=== PATIENT | female | born 1995 | race Hispanic/Latino ===

== ENCOUNTER 2016-10-26 21:56 | Emergency (ER) | payer OTHER ==
[2016-10-26 22:00] VITALS: BP 102/62; PULSE 69; RESP 18; TEMP 98; O2SAT 100
--- NOTE | 2016-10-26 22:57 | ED PDOC ---
HPI: Nose Bleed Time Seen by Provider: 10/26/16 22:00 Chief Complaint (Nursing): ENT Problem Chief Complaint (Provider): Nose bleed History Per: Patient History/Exam Limitations: no limitations Current Symptoms Are (Timing): Gone Now Location Of Bleeding: Left Nare Additional Complaint(s): Pt states she has been having panic attacks for 2 weeks and was seen in an ER when she had her first one. PT states she has been taking ativan as needed. Pt states she was seen by PMD today and given a new Rx for a daily medication. Pt states she has also been taking OTC medication for sleep that is not melatonin. Pt state she has taken it a few times the last week (? diphenhydramine). PT states today she began having a nose bleed which stopped in 5 minutes of applying pressure. Pt states she swallowed some blood which made her vomit. Pt states she has no abdominal pain or nausea now. PT reports anxiety starting after her friends mother from an aneurysm. Past Medical History Reviewed: Historical Data, Nursing Documentation, Vital Signs Vital Signs: Last Vital Signs Temp 98 F 10/26/16 21:58 Pulse 69 10/26/16 21:58 Resp 18 10/26/16 21:58 BP 102/62 10/26/16 21:58 Pulse Ox 100 10/26/16 21:58 - Medical History PMH: Anxiety - Surgical History Surgical History: No Surg Hx - Family History Family History: States: Unknown Family Hx - Living Arrangements Living Arrangements: With Family - Social History Current smoker - smoking cessation education provided: No Alcohol: Occasional Drugs: Denies - Allergies Allergies/Adverse Reactions: Allergies Allergy/AdvReac Type Severity Reaction Status Date / Time No Known Allergies Allergy Verified 10/26/16 22:00 Review of Systems ROS Statement: Except As Marked, All Systems Reviewed And Found Negative ENT: Positive for: Other (Nose bleed) Physical Exam - Reviewed Nursing Documentation Reviewed: Yes Vital Signs Reviewed: Yes - Physical Exam Appears: Positive for: Well, Non-toxic, No Acute Distress Head Exam: Positive for: ATRAUMATIC, NORMAL INSPECTION, NORMOCEPHALIC Skin: Positive for: Normal Color, Warm, DRY Eye Exam: Positive for: Normal appearance ENT: Positive for: Normal ENT Inspection, Other ((-) septal hematoma ) Neck: Positive for: Normal, Painless ROM Cardiovascular/Chest: Positive for: Regular Rate, Rhythm Respiratory: Positive for: Normal Breath Sounds. Negative for: Accessory Muscle Use, Respiratory Distress Back: Positive for: Normal Inspection Extremity: Positive for: Normal ROM Neurologic/Psych: Positive for: Alert, customer relations coordinator II-XII, Oriented, Mood/Affect, Cerebellar Tests, Gait. Negative for: Motor/Sensory Deficits, Aphasia, Facial Droop - ECG O2 Sat by Pulse Oximetry: 100 Pulse Ox Interpretation: Normal Medical Decision Making Medical Decision Making: Pt states she is going for labs next week which was ordered by her PMD. Disposition - Clinical Impression Clinical Impression: Epistaxis - Patient ED Disposition Is Patient to be Admitted: No Counseled Patient/Family Regarding: Diagnosis, Need For Followup - Disposition Referrals: Rebecca Shultz MD [Family Provider] - Disposition: Routine/Home Disposition Time: 22:55 Condition: GOOD Instructions: Nosebleed (ED)
== END 2016-10-26 23:01 | disposition home or self-care (01) ==
LOC: H.ER 21:56
DX: R04.0 Epistaxis (principal)

== ENCOUNTER 2016-11-19 18:29 | Emergency (ER) | payer OTHER ==
[2016-11-19 18:39] VITALS: BP 118/69; PULSE 85; RESP 16; TEMP 98.4; O2SAT 100
--- NOTE | 2016-11-19 20:21 | ED PDOC ---
HPI: Chest Pain Time Seen by Provider: 11/19/16 20:06 Chief Complaint (Nursing): Chest Pain Chief Complaint (Provider): chest pain History/Exam Limitations: no limitations Onset/Duration Of Symptoms: Days (5), Waxing/Waning Quality: Dull Additional History Per: Patient Additional Complaint(s): 21 y/o female presents with intermittent chest pain x 5 days. Patient describes a "dull" pain, in the midsternal to left side of chest. She also notes intermittent tingling to hands and feet, last episode earlier today with feelings of "light headed". Patient currently on Amoxicillin for sinus infection, and protonix and pepcid for gastritis. Denies headache, fever, nausea/vomiting, shortness of breath, palpitations, abdominal pain, leg pain/ swelling, recent travel, OCP use. Past Medical History Reviewed: Historical Data, Nursing Documentation, Vital Signs Vital Signs: Last Vital Signs Temp 98.4 F 11/19/16 18:36 Pulse 85 11/19/16 18:36 Resp 16 11/19/16 18:36 BP 118/69 11/19/16 18:36 Pulse Ox 100 11/19/16 22:13 - Medical History PMH: Anxiety - Surgical History Surgical History: No Surg Hx - Family History Family History: States: Unknown Family Hx - Living Arrangements Living Arrangements: Alone - Social History Current smoker - smoking cessation education provided: No Alcohol: Social Drugs: Denies - Home Medications Home Medications: Ambulatory Orders Medication Instructions Recorded Escitalopram [Lexapro] 10 mg PO DAILY 11/06/16 Famotidine [Pepcid] 20 mg PO PRN PRN #30 tab 11/06/16 Pantoprazole [Protonix EC Tab] 20 mg PO DAILY #30 ect 11/06/16 - Allergies Allergies/Adverse Reactions: Allergies Allergy/AdvReac Type Severity Reaction Status Date / Time No Known Allergies Allergy Verified 11/19/16 18:35 TAMIA Risk Score for UA/NSTEMI - TAMIA Risk Score Age > 64: NO 3 or more CAD Risk Factors: NO Known CAD (Stenosis greater than 50%): NO Aspirin use in past 7 days: NO Severe Angina: NO EKG ST changes greater than 0.5mm: NO Positive Cardiac Marker: NO TAMIA Score: 0 Risk %: 5% Wells Criteria for PE - Wells Criteria for Pulmonary Embolism Clinical Signs and Symptoms of DVT: No P.E is #1 Diagnosis, or Equally Likely: No Heart Rate >100: No Immobilization at least 3 days;Surgery previous 4 weeks: No Previous, objectively diagnosed PE or DVT: No Hemoptysis: No Malignancy w/treatment within 6 months, or palliative: No Total Score: 0 Review of Systems ROS Statement: Except As Marked, All Systems Reviewed And Found Negative Cardiovascular: Positive for: Chest Pain Physical Exam - Reviewed Nursing Documentation Reviewed: Yes Vital Signs Reviewed: Yes - Physical Exam Appears: Positive for: Well, Non-toxic, No Acute Distress Head Exam: Positive for: ATRAUMATIC, NORMAL INSPECTION, NORMOCEPHALIC Skin: Positive for: Normal Color Eye Exam: Positive for: Normal appearance ENT: Positive for: Normal ENT Inspection Cardiovascular/Chest: Positive for: Regular Rate, Rhythm. Negative for: Chest Non Tender (tender to palpate mid-sternum, left chest wall; no crepitus, ecchymosis noted) Respiratory: Positive for: Normal Breath Sounds Gastrointestinal/Abdominal: Positive for: Normal Exam Back: Positive for: Normal Inspection Extremity: Positive for: Normal ROM Neurologic/Psych: Positive for: Alert, Oriented. Negative for: Motor/Sensory Deficits - Laboratory Results Result Diagrams: 11/19/16 20:37 11/19/16 20:37 - ECG ECG: Positive for: Viewed By Me (reviewed by ED attending) ECG Rhythm: Positive for: Sinus Rhythm O2 Sat by Pulse Oximetry: 100 Pulse Ox Interpretation: Normal - Radiology X-Ray: Viewed By Me X-Ray Interpretation: No Acute Disease - Progress ED Course And Treament: labs, ekg, chest xray Patient given potassium PO for slightly low level. Patient educated on findings, discharged with instructions to follow up PMD 2-3 days. Return to ED for worsening/concerning symptoms. Disposition - Clinical Impression Clinical Impression: Atypical chest pain - Patient ED Disposition Is Patient to be Admitted: No Counseled Patient/Family Regarding: Studies Performed, Diagnosis, Need For Followup - Disposition Disposition: Routine/Home Disposition Time: 22:29 Condition: IMPROVED Instructions: Noncardiac Chest Pain (ED)
[2016-11-19 20:55] LABS: BASO % 0.6 % (0.0-2.0); EOS % 0.5 % (0.0-4.0); HEMATOCRIT 37.9 % (34.0-47.0); LYMPH # 2.7 K/uL (1.0-4.3); LYMPH % 33.1 % (20.0-40.0); MEAN CELL VOLUME 88.2 fl (81.0-99.0); MEAN CORPUSCULAR HEMOGLOBIN 29.7 pg (27.0-31.0); MEAN CORPUSCULAR HGB CONC 33.7 g/dL (33.0-37.0); MEAN PLATELET VOLUME 8.4 fl (7.2-11.7); MONO # 0.6 K/uL (0.0-0.8); MONO % 7.6 % (0.0-10.0); NEUT # 4.7 K/uL (1.8-7.0); NEUT % 58.2 % (50.0-75.0); NRBC % 0.1 % (0.0-0.0); RED CELL DISTRIBUTION WIDTH 12.8 % (11.5-14.5)
[2016-11-19 21:03] LABS: ALB/GLOB RATIO 1.8 (1.0-2.1); ALKALINE PHOSPHATASE 52 U/L (38-126); ALT/SGPT 30 U/L (9-52); AST/SGOT 26 U/L (14-36); BILIRUBIN,TOTAL 0.4 mg/dl (0.2-1.3); BLOOD UREA NITROGEN 14 mg/dl (7-17); CALCIUM 9.4 mg/dL (8.4-10.2); CARBON DIOXIDE 22 mmol/L (22-30); CHLORIDE 104 mmol/L (98-107); GFR AFRICAN-AMERICAN > 60; GLUCOSE,RANDOM 81 mg/dL (65-105); POTASSIUM 3.4 MMOL/L (3.6-5.0); SODIUM 137 mmol/l (132-148); TOTAL PROTEIN 6.8 G/DL (6.3-8.2)
[2016-11-19] MEDS ORDERED: Potassium Chloride 20 mEq ER Tab PO ONE ×2 (22:13→22:53)
--- NOTE | 2016-11-20 01:43 | CARD ---
APPROVED REPORT EKG Measurement Heart [id number] <Conclusion> Normal sinus rhythm Low voltage QRS Borderline ECG
--- NOTE | 2016-11-20 11:22 | RAD ---
HISTORY: chest pain COMPARISON: No prior. TECHNIQUE: Chest PA and lateral FINDINGS: LUNGS: No active pulmonary disease. PLEURA: No significant pleural effusion identified. No pneumothorax apparent. CARDIOVASCULAR: Normal. OSSEOUS STRUCTURES: No significant abnormalities. VISUALIZED UPPER ABDOMEN: Normal. OTHER FINDINGS: None. IMPRESSION: No active disease.
== END 2016-11-19 23:12 | disposition home or self-care (01) ==
LOC: H.ER 18:29
DX: R07.9 Chest pain, unspecified (principal); F41.9 Anxiety disorder, unspecified

== ENCOUNTER 2017-04-28 21:00 | Emergency (ER) | payer OTHER ==
[2017-04-28 21:15] VITALS: BP 122/84; PULSE 69; RESP 16; TEMP 98.6; O2SAT 99
--- NOTE | 2017-04-28 21:20 | ED PDOC ---
HPI: Headache Time Seen by Provider: 04/28/17 21:19 Chief Complaint (Nursing): Headache Chief Complaint (Provider): Headache History Per: Patient Additional Complaint(s): Pt is a 22 yo female, PMH of anxiety, presents to ED for evaluation of constant headache x 3 months now. Pt reports she has seen an ENT and has been treated for recurrent sinus infections. Pt currently on Augmentin and Prednisone. Past Medical History Reviewed: Nursing Documentation, Vital Signs Vital Signs: Last Vital Signs Temp 98.6 F 04/28/17 21:12 Pulse 69 04/28/17 21:12 Resp 16 04/28/17 21:12 BP 122/84 04/28/17 21:12 Pulse Ox 99 04/28/17 21:12 - Medical History PMH: Anxiety - Surgical History Surgical History: No Surg Hx - Family History Family History: States: Unknown Family Hx - Living Arrangements Living Arrangements: With Family - Social History Current smoker - smoking cessation education provided: No Alcohol: None Drugs: Denies - Home Medications Home Medications: Ambulatory Orders Medication Instructions Recorded Escitalopram [Lexapro] 10 mg PO DAILY 11/06/16 Famotidine [Pepcid] 20 mg PO PRN PRN #30 tab 11/06/16 Pantoprazole [Protonix EC Tab] 20 mg PO DAILY #30 ect 11/06/16 Acetaminophen/Butalbital/Caf 1 tab PO Q4 #15 tab 04/29/17 [Fioricet] - Allergies Allergies/Adverse Reactions: Allergies Allergy/AdvReac Type Severity Reaction Status Date / Time No Known Allergies Allergy Verified 11/19/16 18:35 Review of Systems ROS Statement: Except As Marked, All Systems Reviewed And Found Negative Neurological: Positive for: Headache Physical Exam - Reviewed Nursing Documentation Reviewed: Yes Vital Signs Reviewed: Yes - Physical Exam Appears: Positive for: Well, Non-toxic, No Acute Distress Head Exam: Positive for: ATRAUMATIC, NORMAL INSPECTION, NORMOCEPHALIC Skin: Positive for: Normal Color, Warm, DRY Eye Exam: Positive for: EOMI, Normal appearance, PERRL ENT: Positive for: Normal ENT Inspection Neck: Positive for: Normal, Painless ROM Cardiovascular/Chest: Positive for: Regular Rate, Rhythm Respiratory: Positive for: CNT, Normal Breath Sounds Gastrointestinal/Abdominal: Positive for: Normal Exam, Bowel Sounds, Soft Back: Positive for: Normal Inspection Extremity: Positive for: Normal ROM Neurologic/Psych: Positive for: Alert, Oriented - Laboratory Results Result Diagrams: 04/28/17 23:19 04/28/17 23:19 - ECG O2 Sat by Pulse Oximetry: 99 Medical Decision Making Medical Decision Making: IV access established and diagnostics ordered Treatment initiated with Toradol, Reglan and IVF Labs resulted and reviewed with Pt who demonstrated fill understanding CT SINUS IMPRESSION: None 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 Pt on re-eval reports feeling improved. Neuro exam remains non focal. Stable for discharge at this time Pt reports that she is following up with her ENT tomorrow. Disposition - Clinical Impression Clinical Impression: Headache - Patient ED Disposition Is Patient to be Admitted: No - Disposition Disposition: Routine/Home Disposition Time: 00:00 Condition: STABLE Prescriptions: Acetaminophen/Butalbital/Caf [Fioricet] 1 tab PO Q4 #15 tab Instructions: Migraine Headache (ED) Forms: [employer] (Uzbek), [facility] ED School/Work Excuse
[2017-04-28] MEDS ORDERED: Sodium Chloride 0.9% 1,000 ML IV STA (21:43)
[2017-04-28 23:27] LABS: BASO % 0.2 % (0.0-2.0); HEMATOCRIT 40.3 % (34.0-47.0); LYMPH # 0.9 K/uL (1.0-4.3); LYMPH % 7.3 % (20.0-40.0); MEAN CELL VOLUME 90.4 fl (81.0-99.0); MEAN CORPUSCULAR HEMOGLOBIN 29.9 pg (27.0-31.0); MEAN CORPUSCULAR HGB CONC 33.1 g/dL (33.0-37.0); MEAN PLATELET VOLUME 8.1 fl (7.2-11.7); MONO # 0.3 K/uL (0.0-0.8); MONO % 2.3 % (0.0-10.0); NEUT # 11.1 K/uL (1.8-7.0); NEUT % 90.2 % (50.0-75.0); PLATELET COUNT 271 K/uL (130-400); RED CELL DISTRIBUTION WIDTH 12.7 % (11.5-14.5); WHITE BLOOD COUNT 12.3 K/uL (4.8-10.8)
[2017-04-28 23:41] LABS: ALB/GLOB RATIO 1.6 (1.0-2.1); ALKALINE PHOSPHATASE 51 U/L (38-126); ALT/SGPT 33 U/L (9-52); AST/SGOT 23 U/L (14-36); BILIRUBIN,TOTAL 0.5 mg/dl (0.2-1.3); BLOOD UREA NITROGEN 15 mg/dl (7-17); CALCIUM 9.8 mg/dL (8.4-10.2); CARBON DIOXIDE 24 mmol/L (22-30); CHLORIDE 106 mmol/L (98-107); GFR AFRICAN-AMERICAN > 60; GLUCOSE,RANDOM 119 mg/dL (65-105); POTASSIUM 3.9 MMOL/L (3.6-5.0); SODIUM 141 mmol/l (132-148); TOTAL PROTEIN 7.2 G/DL (6.3-8.2)
[2017-04-29 01:19] LABS: NEUTROPHIL 86 % (42-75); TOTAL CELLS COUNTED 100
[2017-04-29 01:50] LABS: ERYTHROCYTE SEDIMENTATION RATE 4 mm/hr (0-20)
--- NOTE | 2017-04-29 08:55 | CT ---
PROCEDURE: CT HEAD WITHOUT CONTRAST. HISTORY: severe headache, temporal x 4 months COMPARISON: None available. TECHNIQUE: Axial computed tomography images were obtained through the head/brain without intravenous contrast. Radiation dose: Total exam DLP = 813.01 mGy-cm. This CT exam was performed using one or more of the following dose reduction techniques: Automated exposure control, adjustment of the mA and/or kV according to patient size, and/or use of iterative reconstruction technique. FINDINGS: HEMORRHAGE: No intracranial hemorrhage. BRAIN: Normal prakash-white matter differentiation and density are appreciated throughout the cerebrum and cerebellum with the brainstem appearing unremarkable as well. There is no mass effect. There is no suspicious extra-axial fluid collection in the midline brain anatomy appears diffusely unremarkable. VENTRICLES: Unremarkable. No hydrocephalus. CALVARIUM: No significant lytic or blastic change is identified and there is no displaced fracture identified including through the skullbase. PARANASAL SINUSES: Unremarkable as visualized. No significant inflammatory changes. MASTOID AIR CELLS: Unremarkable as visualized. No inflammatory changes. OTHER FINDINGS: None. IMPRESSION: Normal CT of the Head. Concordant preliminary report from [facility], 04/28/2017.
--- NOTE | 2017-04-29 08:59 | CT ---
PROCEDURE: CT SINUSES WITHOUT CONTRAST HISTORY: headahce, sinus pain COMPARISON: None TECHNIQUE: Contiguous axial CT images of the paranasal sinuses were obtained. Coronal and sagittal reformats were generated. Radiation dose: Total exam DLP = 667.99 mGy-cm. This CT exam was performed using one or more of the following dose reduction techniques: Automated exposure control, adjustment of the mA and/or kV according to patient size, and/or use of iterative reconstruction technique. FINDINGS: Normal development and aeration of the pain is sinuses is identified throughout. FRONTAL SINUSES: Clear. ETHMOID SINUSES: Clear. SPHENOID SINUSES: Clear. MAXILLARY SINUSES: Clear. SINUS DRAINAGE: Osteomeatal complexes, frontal recesses and sphenoethmoid recesses clear. NASAL SEPTUM: Leftward nasal septal deviation is identified. MASS: None. SKULL BASE: Unremarkable. TEMPORAL BONES: Middle ears and mastoid grossly unremarkable. OTHER FINDINGS: Pneumatized bilateral superior terminates are identified. IMPRESSION: No suspicious opacification of the appearing sinuses identified which appear normal in development and aeration overall. Leftward bony nasal septal deviation is encountered. Sinus drainage appears intact grossly.
== END 2017-04-29 00:54 | disposition home or self-care (01) ==
LOC: H.ER 21:00
DX: R51 Headache (principal); J34.2 Deviated nasal septum; F41.9 Anxiety disorder, unspecified
CPT/HCPCS: 70450; 70486; 80053; 81025; 85025; 85651; 96374; 96375; 99285; J1885; J2765; J7040

== ENCOUNTER 2017-10-21 11:48 | Emergency (ER) | payer OTHER ==
[2017-10-21] MEDS ORDERED: Sodium Chloride 0.9% 1,000 ML IV STA (12:03)
--- NOTE | 2017-10-21 12:11 | ED PDOC ---
HPI: General Adult Time Seen by Provider: 10/21/17 11:57 History Per: Patient, EMS History/Exam Limitations: no limitations Current Symptoms Are (Timing): Still Present Additional Complaint(s): 22-year-old female who was brought in by EMS after experiencing syncopal episode at urgent care after blood was drawn. Feels better now. Denies chest pain, palpitations, headache, dizziness. States she felt hot when blood was being drawn. Patient was at Urgent care for LLQ pain x 2 days. Expects her period any day now. Denies dysuria, nausea, vomiting, diarrhea. PMD: Provider TBD Past Medical History Reviewed: Historical Data, Nursing Documentation, Vital Signs Vital Signs: Last Vital Signs Temp 97.6 F 10/21/17 11:52 Pulse 66 10/21/17 11:52 Resp 21 10/21/17 11:52 BP 110/69 10/21/17 11:52 Pulse Ox 100 10/21/17 12:16 - Medical History PMH: Anxiety - Surgical History Surgical History: No Surg Hx - Family History Family History: States: Unknown Family Hx - Home Medications Home Medications: Ambulatory Orders Medication Instructions Recorded Escitalopram [Lexapro] 10 mg PO DAILY 11/06/16 Famotidine [Pepcid] 20 mg PO PRN PRN #30 tab 11/06/16 Pantoprazole [Protonix EC Tab] 20 mg PO DAILY #30 ect 11/06/16 Acetaminophen/Butalbital/Caf 1 tab PO Q4 #15 tab 04/29/17 [Fioricet] Naproxen [Naprosyn] 500 mg PO Q12H #20 tab 10/21/17 - Allergies Allergies/Adverse Reactions: Allergies Allergy/AdvReac Type Severity Reaction Status Date / Time No Known Allergies Allergy Verified 11/19/16 18:35 Review of Systems ROS Statement: Except As Marked, All Systems Reviewed And Found Negative Cardiovascular: Negative for: Chest Pain, Palpitations Gastrointestinal: Positive for: Other (LLQ Pain). Negative for: Nausea, Vomiting, Diarrhea Genitourinary Female: Negative for: Dysuria Neurological: Positive for: Other (Syncopal episode). Negative for: Headache, Dizziness Physical Exam - Reviewed Nursing Documentation Reviewed: Yes Vital Signs Reviewed: Yes - Physical Exam Appears: Positive for: No Acute Distress Cardiovascular/Chest: Positive for: Regular Rate, Rhythm Respiratory: Positive for: Normal Breath Sounds. Negative for: Respiratory Distress Gastrointestinal/Abdominal: Positive for: Tenderness (Abdominal tenderness to LLQ). Negative for: Guarding, Rebound Back: Positive for: Normal Inspection. Negative for: L CVA Tenderness, R CVA Tenderness Neurologic/Psych: Positive for: Alert, Oriented (x 3). Negative for: Motor/ Sensory Deficits - Laboratory Results Result Diagrams: 10/21/17 13:26 10/21/17 13:26 - ECG O2 Sat by Pulse Oximetry: 100 (RA) Pulse Ox Interpretation: Normal Medical Decision Making Medical Decision Making: Time: 12:02 Plan: - EKG - CMP - ED Urine - CBC - Sodium Chloride 0.9% 1,000 ml IV 150 mls/hr - Transvaginal Ultrasound Scribe Attestation: Documented by Jt Conde, acting as a scribe for Elliot Oshea MD Provider Scribe Attestation: All medical record entries made by the Scribe were at my direction and personally dictated by me. I have reviewed the chart and agree that the record accurately reflects my personal performance of the history, physical exam, medical decision making, and the department course for this patient. I have also personally directed, reviewed, and agree with the discharge instructions and disposition. Disposition - Clinical Impression Clinical Impression: Vasovagal syncope, Dysmenorrhea - Patient ED Disposition Is Patient to be Admitted: No Counseled Patient/Family Regarding: Studies Performed, Diagnosis, Need For Followup, Rx Given - Disposition Referrals: [facility] [Outside] Disposition: Routine/Home Disposition Time: 15:11 Condition: FAIR Prescriptions: Naproxen [Naprosyn] 500 mg PO Q12H #20 tab Instructions: Vasovagal Response (DC)
[2017-10-21 13:30] LABS: BASO % 0.5 % (0.0-2.0); EOS % 0.3 % (0.0-4.0); HEMOGLOBIN 13.1 g/dL (12.0-16.0); LYMPH # 1.1 K/uL (1.0-4.3); LYMPH % 17.3 % (20.0-40.0); MEAN CELL VOLUME 89.3 fl (81.0-99.0); MEAN CORPUSCULAR HEMOGLOBIN 30.3 pg (27.0-31.0); MEAN CORPUSCULAR HGB CONC 33.9 g/dL (33.0-37.0); MEAN PLATELET VOLUME 8.2 fl (7.2-11.7); MONO # 0.5 K/uL (0.0-0.8); MONO % 7.6 % (0.0-10.0); NEUT # 4.9 K/uL (1.8-7.0); NEUT % 74.3 % (50.0-75.0); NRBC % 0.1 % (0.0-0.0); RBC 4.33 Mil/uL (3.80-5.20); RED CELL DISTRIBUTION WIDTH 12.3 % (11.5-14.5); WHITE BLOOD COUNT 6.6 K/uL (4.8-10.8)
[2017-10-21 13:45] LABS: ALB/GLOB RATIO 1.3 (1.0-2.1); ALBUMIN 3.8 g/dL (3.5-5.0); ALT/SGPT 33 U/L (9-52); AST/SGOT 23 U/L (14-36); BLOOD UREA NITROGEN 15 mg/dl (7-17); CALCIUM 8.9 mg/dL (8.4-10.2); GFR AFRICAN-AMERICAN > 60; GFR NON-AFRICAN AMERICAN > 60
--- NOTE | 2017-10-21 15:04 | US ---
HISTORY: LLQ pain COMPARISON: None available. TECHNIQUE: Transvaginal pelvic ultrasound was performed with longitudinal and transverse images submitted for interpretation. FINDINGS: UTERUS: Measures 7.6 x 4.3 x 3.1 cm. Normal in size and appearance. No fibroid or other mass lesion seen. ENDOMETRIUM: Measures 5.1 mm in diameter. Unremarkable. CERVIX: No cervical abnormality identified. RIGHT OVARY: Measures 3.3 x 1.7 x 2.3 cm. No solid mass. Normal flow. LEFT OVARY: Measures 2.6 x 1.4 x 1.6 cm. No solid mass. Normal flow. FREE FLUID: No significant free fluid noted. OTHER FINDINGS: None. IMPRESSION: Unremarkable pelvic ultrasound.
[2017-10-21 16:24] VITALS: BP 128/78; PULSE 78; RESP 19; TEMP 97; O2SAT 98
--- NOTE | 2017-10-22 07:35 | CARD ---
APPROVED REPORT EKG Measurement Heart [id number] <Conclusion> Normal sinus rhythm Low voltage QRS Borderline ECG
== END 2017-10-21 16:24 | disposition home or self-care (01) ==
LOC: H.ER 11:48
DX: R55 Syncope and collapse (principal); N94.6 Dysmenorrhea, unspecified; F41.9 Anxiety disorder, unspecified
CPT/HCPCS: 76830; 80053; 85025; 93005; 99284; J7040

== ENCOUNTER 2018-07-12 14:38 | Emergency (ER) | payer OTHER ==
[2018-07-12 14:48] VITALS: RESP 18
--- NOTE | 2018-07-12 15:25 | ED PDOC ---
HPI: Abdomen Time Seen by Provider: 07/12/18 15:04 Chief Complaint (Nursing): Abdominal Pain Chief Complaint (Provider): Abdominal pain History Per: Patient History/Exam Limitations: no limitations Onset/Duration Of Symptoms: Other (x1 month) Current Symptoms Are (Timing): Still Present Location Of Pain/Discomfort: Epigastric (and left sided) Associated Symptoms: Nausea. denies: Fever, Vomiting, Diarrhea Additional Complaint(s): 23 year old female presents to the ED with epigastric pain and left sided abdominal pain ongoing for a month. Patient reports pain worsened on [place] when she drank alcohol and has been persistently severe since then. She unintentionally lost 4 pounds since then and developed nausea and light headedness in the last week. She has been on a bland diet and taking Prevacid with no relief. Denies diarrhea, constipation, black or bloody stools, vomiting, fever, or chills. Bloodwork done on the was unremarkable. Patient has a past medical history of gastritis which was 2 years ago with similar presentation but worse now. Lead Pourer: Dr. Adan Moran Past Medical History Reviewed: Historical Data, Nursing Documentation, Vital Signs Vital Signs: Last Vital Signs Temp 98.1 F 07/12/18 14:46 Pulse 86 07/12/18 14:46 Resp 18 07/12/18 14:46 BP 122/72 07/12/18 14:46 Pulse Ox 100 07/12/18 14:46 - Medical History PMH: Anxiety, Gastritis - Surgical History Surgical History: Endoscopy - Family History Family History: States: No Known Family Hx - Social History Current smoker - smoking cessation education provided: No Alcohol: Social Drugs: Denies - Home Medications Home Medications: Ambulatory Orders Medication Instructions Recorded Escitalopram [Lexapro] 10 mg PO DAILY 11/06/16 Famotidine [Pepcid] 20 mg PO PRN PRN #30 tab 11/06/16 Pantoprazole [Protonix EC Tab] 20 mg PO DAILY #30 ect 11/06/16 Acetaminophen/Butalbital/Caf 1 tab PO Q4 #15 tab 04/29/17 [Fioricet] Naproxen [Naprosyn] 500 mg PO Q12H #20 tab 10/21/17 Pantoprazole Sodium [Protonix] 40 mg PO DAILY #30 tablet. 10/21/17 Sucralfate [Carafate Tab] 1 gm PO Q6 PRN #30 tab 07/12/18 - Allergies Allergies/Adverse Reactions: Allergies Allergy/AdvReac Type Severity Reaction Status Date / Time No Known Allergies Allergy Verified 11/19/16 18:35 Review of Systems ROS Statement: Except As Marked, All Systems Reviewed And Found Negative (as per HPI) Constitutional: Negative for: Fever, Chills Gastrointestinal: Positive for: Nausea, Abdominal Pain. Negative for: Vomiting, Diarrhea, Constipation, Melena, Hematochezia Neurological: Positive for: Other (light headedness) Physical Exam - Reviewed Nursing Documentation Reviewed: Yes Vital Signs Reviewed: Yes - Physical Exam Appears: Positive for: Non-toxic, In Acute Distress (Mild painful distress and tired appearing) Head Exam: Positive for: ATRAUMATIC, NORMOCEPHALIC Skin: Positive for: Warm, Dry, Pallor (mild) Eye Exam: Positive for: EOMI, PERRL ENT: Negative for: Pharyngeal Erythema, Tonsillar Exudate Neck: Positive for: Painless ROM, Supple Cardiovascular/Chest: Positive for: Regular Rate, Rhythm. Negative for: Murmur Respiratory: Positive for: Normal Breath Sounds. Negative for: Respiratory Distress Gastrointestinal/Abdominal: Positive for: Soft, Tenderness (in epigastric area). Negative for: Mass, Distended, Guarding, Rebound Back: Positive for: Normal Inspection. Negative for: Muscle Spasm Extremity: Positive for: Normal ROM. Negative for: Deformity Lymphatic: Negative for: Adenopathy Neurologic/Psych: Positive for: Alert. Negative for: Motor/Sensory Deficits - Laboratory Results Result Diagrams: 07/12/18 15:20 07/12/18 15:22 - ECG O2 Sat by Pulse Oximetry: 100 (RA) Pulse Ox Interpretation: Normal Medical Decision Making Medical Decision Making: Initial Impression: Abdominal pain Differential includes but not limited to gastritis, PUD, pancreatitis, hepatitis, and gall bladder disease Initial Plan: --CMP --Lipase stat --ED urine --ED urine dipstick --CBC --US Abdomen 15:55 No clinically significant lab abnormalities. Accession No. : [id number] Patient Name / ID : AKOSUA FELICIANO / [id number] Exam Date : 07/12/2018 15:29:41 ( Approved ) Study Comment : Sex / Age : F / 23Y Creator : Corey Riley MD Dictator : Corey Riley MD Horse Show Judge : Spray Painting Machine Operator : Corey Riley MD Approver2 : Report Date : 07/12/2018 16:13:21 My Comment : Date of service: 07/12/2018 HISTORY: upper abd pain COMPARISON: None. TECHNIQUE: Sonographic evaluation of the abdomen. FINDINGS: LIVER: Measures cm. Normal echogenicity of the liver parenchyma. No mass. No intrahepatic bile duct dilatation. GALLBLADDER: Unremarkable. No gallstones. COMMON BILE DUCT: Measures mm. No stones. No dilatation. PANCREAS: Unremarkable as visualized. No mass. No ductal dilatation. RIGHT KIDNEY: Measures cm. Normal echogenicity. No calculus, mass, or hydronephrosis. LEFT KIDNEY: Measures cm. Normal echogenicity. No calculus, mass, or hydronephrosis. SPLEEN: Normal in size and contour. No mass. AORTA: No aneurysmal dilatation. IVC: Unremarkable. OTHER FINDINGS: None. IMPRESSION: Unremarkable abdominal sonogram. DW pt findings. Stable for discharge with followup. Requesting results, which were given directly to patient. Scribe Attestation: Documented by Lincoln Darden acting as a scribe for Ellen Cifuentes MD. Provider Scribe Attestation: All medical record entries made by the Scribe were at my direction and personally dictated by me. I have reviewed the chart and agree that the record a ccurately reflects my personal performance of the history, physical exam, medical decision making, and the department course for this patient. I have also personally directed, reviewed, and agree with the discharge instructions and disposition. Disposition - Clinical Impression Clinical Impression: Abdominal pain Counseled Patient/Family Regarding: Studies Performed, Diagnosis, Need For Followup, Rx Given - Disposition Disposition: Routine/Home Disposition Time: 17:03 Condition: STABLE Additional Instructions: FOLLOW UP SOON POSSIBLE WITH YOUR DAIRY CATTLE FARM MANAGER FOR FURTHER EVAL UATION Prescriptions: Sucralfate [Carafate Tab] 1 gm PO Q6 PRN #30 tab PRN Reason: ABDOMINAL PAIN Instructions: Acute Abdomen (Belly Pain), Adult (DC)
[2018-07-12 15:36] LABS: BASO % 0.4 % (0.0-2.0); EOS % 0.1 % (0.0-4.0); HEMOGLOBIN 13.4 g/dL (12.0-16.0); LYMPH # 2.2 K/uL (1.0-4.3); LYMPH % 28.2 % (20.0-40.0); MEAN CELL VOLUME 88.6 fl (81.0-99.0); MEAN CORPUSCULAR HEMOGLOBIN 29.4 pg (27.0-31.0); MEAN CORPUSCULAR HGB CONC 33.2 g/dL (33.0-37.0); MEAN PLATELET VOLUME 8.1 fl (7.2-11.7); MONO # 0.5 K/uL (0.0-0.8); NEUT % 64.3 % (50.0-75.0); RBC 4.56 Mil/uL (3.80-5.20); RED CELL DISTRIBUTION WIDTH 12.2 % (11.5-14.5); WHITE BLOOD COUNT 7.8 K/uL (4.8-10.8)
[2018-07-12 15:41] LABS: ALB/GLOB RATIO 1.7 (1.0-2.1); ALBUMIN 4.4 g/dL (3.5-5.0); ALT/SGPT 39 U/L (9-52); AST/SGOT 24 U/L (14-36); BLOOD UREA NITROGEN 12 mg/dl (7-17); CALCIUM 9.5 mg/dL (8.4-10.2); GFR NON-AFRICAN AMERICAN > 60; LIPASE 152 U/L (23-300)
--- NOTE | 2018-07-12 16:17 | US ---
Date of service: 07/12/2018 HISTORY: upper abd pain COMPARISON: None. TECHNIQUE: Sonographic evaluation of the abdomen. FINDINGS: LIVER: Measures cm. Normal echogenicity of the liver parenchyma. No mass. No intrahepatic bile duct dilatation. GALLBLADDER: Unremarkable. No gallstones. COMMON BILE DUCT: Measures mm. No stones. No dilatation. PANCREAS: Unremarkable as visualized. No mass. No ductal dilatation. RIGHT KIDNEY: Measures cm. Normal echogenicity. No calculus, mass, or hydronephrosis. LEFT KIDNEY: Measures cm. Normal echogenicity. No calculus, mass, or hydronephrosis. SPLEEN: Normal in size and contour. No mass. AORTA: No aneurysmal dilatation. IVC: Unremarkable. OTHER FINDINGS: None. IMPRESSION: Unremarkable abdominal sonogram.
[2018-07-12 17:19] VITALS: BP 120/70; PULSE 74; TEMP 98.3; O2SAT 98
== END 2018-07-12 17:19 | disposition home or self-care (01) ==
LOC: H.ER 14:38
DX: R10.13 Epigastric pain (principal)

== ENCOUNTER 2018-08-23 09:35 | Emergency (ER) | payer OTHER ==
[2018-08-23 09:40] VITALS: RESP 18; O2SAT 100
[2018-08-23] MEDS ORDERED: Sodium Chloride 0.9% 1,000 ML IV ONE (10:29)
[2018-08-23 11:22] LABS: BASO % 0.7 % (0.0-2.0); EOS % 0.3 % (0.0-4.0); HEMOGLOBIN 14.5 g/dL (12.0-16.0); LYMPH # 1.3 K/uL (1.0-4.3); LYMPH % 26.1 % (20.0-40.0); MEAN CELL VOLUME 88.6 fl (81.0-99.0); MEAN CORPUSCULAR HEMOGLOBIN 30.2 pg (27.0-31.0); MEAN CORPUSCULAR HGB CONC 34.1 g/dL (33.0-37.0); MEAN PLATELET VOLUME 8.8 fl (7.2-11.7); MONO # 0.3 K/uL (0.0-0.8); MONO % 6.6 % (0.0-10.0); NEUT # 3.3 K/uL (1.8-7.0); NEUT % 66.3 % (50.0-75.0); NRBC % 0.2 % (0.0-0.0); RBC 4.78 Mil/uL (3.80-5.20); RED CELL DISTRIBUTION WIDTH 12.4 % (11.5-14.5); WHITE BLOOD COUNT 4.9 K/uL (4.8-10.8)
[2018-08-23 11:26] LABS: ALB/GLOB RATIO 1.6 (1.0-2.1); ALT/SGPT 51 U/L (9-52); AST/SGOT 36 U/L (14-36); BLOOD UREA NITROGEN 16 mg/dl (7-17); CALCIUM 10.3 mg/dL (8.4-10.2); GFR NON-AFRICAN AMERICAN > 60
[2018-08-23 11:50] LABS: SQUAMOUS EPITHIAL 1 /hpf (0-5); URINE BILIRUBIN NEGATIVE (NEGATIVE); URINE BLOOD NEGATIVE (NEGATIVE); URINE CLARITY CLEAR (Clear); URINE COLOR STRAW (YELLOW); URINE GLUCOSE (UA) NEG (NEGATIVE); URINE LEUKOCYTE ESTERASE NEG Leu/uL (Negative); URINE PROTEIN NEGATIVE (NEGATIVE); URINE UROBILINOGEN 0.2-1.0 mg/dL (0.2-1.0)
--- NOTE | 2018-08-23 12:57 | ED PDOC ---
HPI:Nausea, Vomiting, Diarrhea Time Seen by Provider: 08/23/18 10:31 Chief Complaint (Nursing): GI Problem Chief Complaint (Provider): GI Problem History Per: Patient History/Exam Limitations: no limitations Onset/Duration Of Symptoms: Days (>30 days), Persistent Current Symptoms Are (Timing): Better Have you had recent travel within the past 21 days to any of the following countries: [place], [place], [place] or [place]?: No Additional Complaint(s): Pt presents to the ED complaining of lack of desire to eat without abdominal pain, nausea diarhhea or fever. Pt indicates that she is seeing a GI specialist (Oscar) who is actively treating her medically and diagnostically, but wanted to know what more could be done in the emergency room setting; during MHx, pt indicated several symptoms related to depression such as in ability to sleep, lack of desire to eat and desier to really do a whole lot more than just sit around; pt indicates that she was on lexapro up until a month or so ago and she decided that she no longer needed it. This is when her other symptoms (noted above) began Past Medical History Reviewed: Historical Data, Nursing Documentation, Vital Signs Vital Signs: Last Vital Signs Temp 97.9 F 08/23/18 09:38 Pulse 82 08/23/18 09:38 Resp 18 08/23/18 09:38 BP 114/76 08/23/18 09:38 Pulse Ox 100 08/23/18 09:38 - Medical History PMH: Anxiety, Gastritis Denies: Chronic Kidney Disease - Surgical History Surgical History: Endoscopy - Family History Family History: States: Unknown Family Hx - Home Medications Home Medications: Ambulatory Orders Medication Instructions Recorded Escitalopram [Lexapro] 10 mg PO DAILY 11/06/16 Famotidine [Pepcid] 20 mg PO PRN PRN #30 tab 11/06/16 Pantoprazole [Protonix EC Tab] 20 mg PO DAILY #30 ect 11/06/16 Acetaminophen/Butalbital/Caf 1 tab PO Q4 #15 tab 04/29/17 [Fioricet] Naproxen [Naprosyn] 500 mg PO Q12H #20 tab 10/21/17 Pantoprazole Sodium [Protonix] 40 mg PO DAILY #30 10/21/17 Sucralfate [Carafate Tab] 1 gm PO Q6 PRN #30 tab 07/12/18 - Allergies Allergies/Adverse Reactions: Allergies Allergy/AdvReac Type Severity Reaction Status Date / Time No Known Allergies Allergy Verified 11/19/16 18:35 Review of Systems ROS Statement: Except As Marked, All Systems Reviewed And Found Negative Gastrointestinal: Positive for: Other (just ill feeling without pain or tenderness) Physical Exam - Reviewed Nursing Documentation Reviewed: Yes Vital Signs Reviewed: Yes - Physical Exam Appears: Positive for: Well, Non-toxic, No Acute Distress. Negative for: Uncomfortable Head Exam: Positive for: ATRAUMATIC, NORMAL INSPECTION Skin: Positive for: Normal Color, Warm, Dry. Negative for: Diaphoresis, Pallor, Rash Eye Exam: Positive for: Normal appearance, PERRL. Negative for: Nystagmus, Periorbital swelling, Periorbital tenderness ENT: Positive for: Normal ENT Inspection Neck: Positive for: Normal, Painless ROM, Supple. Negative for: Decreased ROM Cardiovascular/Chest: Positive for: Regular Rate, Rhythm Respiratory: Positive for: Normal Breath Sounds Pulses-Carotid (L): 2+ Pulses-Carotid (R): 2+ Pulses-Radial (L): 2+ Pulses-Radial (R): 2+ Gastrointestinal/Abdominal: Positive for: Normal Exam, Bowel Sounds (active in all four quadrants), Soft. Negative for: Tenderness (merckle, rovsing, cruz signs are all negative; there is no rebound tenderness or guarding; there is no tenderness at mcburney point), Distended, Guarding, Rebound, Asicites Neurologic/Psych: Positive for: Alert, Oriented - Laboratory Results Result Diagrams: 08/23/18 10:47 08/23/18 10:47 Lab Results: Total Bilirubin 0.8 mg/dl (0.2-1.3) 08/23/18 10:47 AST 36 U/L (14-36) D 08/23/18 10:47 ALT 51 U/L (9-52) 08/23/18 10:47 Alkaline Phosphatase 76 U/L (38-126) 08/23/18 10:47 Total Protein 8.1 G/DL (6.3-8.2) 08/23/18 10:47 Albumin 5.0 g/dL (3.5-5.0) 08/23/18 10:47 Globulin 3.1 gm/dL (2.2-3.9) 08/23/18 10:47 Albumin/Globulin Ratio 1.6 (1.0-2.1) 08/23/18 10:47 Urine Color Straw (YELLOW) 08/23/18 10:47 Urine Clarity Clear (Clear) 08/23/18 10:47 Urine pH 8.0 (5.0-8.0) 08/23/18 10:47 Ur Specific [place] 1.006 (1.003-1.030) 08/23/18 10:47 Urine Protein Negative mg/dL (NEGATIVE) 08/23/18 10:47 Urine Glucose (UA) Neg mg/dL (NEGATIVE) 08/23/18 10:47 Urine Ketones Negative mg/dL (NEGATIVE) 08/23/18 10:47 Urine Blood Negative (NEGATIVE) 08/23/18 10:47 Urine Nitrate Negative (NEGATIVE) 08/23/18 10:47 Urine Bilirubin Negative (NEGATIVE) 08/23/18 10:47 Urine Urobilinogen 0.2-1.0 mg/dL (0.2-1.0) 08/23/18 10:47 Ur Leukocyte Esterase Neg Cam[place]/uL (Negative) 08/23/18 10:47 Urine RBC (Auto) < 1 /hpf (0-3) 08/23/18 10:47 Urine Microscopic WBC 1 /hpf (0-5) 08/23/18 10:47 Ur Squamous Epith Cells 1 /hpf (0-5) 08/23/18 10:47 - ECG O2 Sat by Pulse Oximetry: 100 Medical Decision Making Medical Decision Making: I: depressive symptoms P: fluids; advise counseling outside of hospital; follow up with GI specialist for reevaluation Disposition - Clinical Impression Clinical Impression: Abdominal discomfort - Patient ED Disposition Is Patient to be Admitted: No Counseled Patient/Family Regarding: Studies Performed, Diagnosis, Need For Followup, Rx Given - Disposition Disposition: Routine/Home Disposition Time: 13:01 Condition: STABLE Additional Instructions: Pt will follow up with PMD and her GI specialist in the next 7 days RtED if fever develops or if pain quality changes or increases Instructions: Depression, Adult (DC), Depression
[2018-08-23 13:29] VITALS: BP 116/60; PULSE 72; TEMP 98.4
== END 2018-08-23 13:31 | disposition home or self-care (01) ==
LOC: H.ER 09:35
DX: F32.9 Major depressive disorder, single episode, unspecified (principal); F41.9 Anxiety disorder, unspecified
CPT/HCPCS: 80053; 81003; 81025; 85025; 87804; 99284; J7030